=== PATIENT | female | born 1985 | race Caucasian/White ===

== ENCOUNTER → 2023-10-13 13:22 | Outpatient (CLI) | payer OTHER, SELFPAY | PROVIDERS: Referring Provider Internal Medicine; Visit Provider Internal Medicine | DX: J45.40 Moderate persistent asthma, uncomplicated (principal); R06.02 Shortness of breath | CPT/HCPCS: 94060; 94726; 94729 ==

== ENCOUNTER → 2023-10-28 15:21 | Outpatient (CLI) | payer OTHER, SELFPAY ==
--- NOTE | 2023-10-28 15:22 | DI.US.S_ITS ---
PROCEDURE: US ABDOMEN COMPLETE INDICATIONS: Hepatomegaly, not elsewhere classified TECHNIQUE: Real-time scanning was performed of the abdominal and retroperitoneal organs, with image documentation. COMPARISON: None. FINDINGS: Liver: Liver is normal in size and homogeneous in echotexture. Gallbladder: Gallbladder is normal in sonographic appearance without gallstones, gallbladder wall thickening, pericholecystic fluid, or abnormal sonographic Vroa's. Biliary ducts: Intrahepatic bile ducts are non-dilated. Extrahepatic bile duct caliber measures 3 mm. Normal is 6-7 mm or less in diameter, or 10 mm or less post-cholecystectomy. Pancreas: Visualized portions of the pancreas are sonographically normal. Miscellaneous: No free abdominal fluid. IMPRESSION: Unremarkable sonographic evaluation of the liver. Dictated by: Juan Foster M.D. on 10/28/2023 at 16:28 Approved by: Juan Foster M.D. on 10/28/2023 at 16:35
== END ==
PROVIDERS: Referring Provider Nurse Practitioner Family; Visit Provider Nurse Practitioner Family
DX: R16.0 Hepatomegaly, not elsewhere classified (principal)
CPT/HCPCS: 76700

== ENCOUNTER → 2024-11-14 15:35 | Outpatient (CLI) | payer OTHER, SELFPAY ==
--- NOTE | 2024-11-14 15:36 | DI.US.S_ITS ---
PROCEDURE: US PELVIC COMPLETE INDICATIONS: HEAVY PERIODS TECHNIQUE: Real-time scanning was performed of the pelvic organs, with image documentation. Additional endovaginal scanning was necessary due to incomplete visualization of the adnexal and endometrial structures by transabdominal scanning. COMPARISON: None. FINDINGS: Uterus: 10.4 x 5.5 x 3.5 cm. Endometrium was not well seen. Anteverted positioning. Ovaries: Right ovary measures 3.4 x 1.5 x 1.9 cm, overall nonenlarged. Left ovary was not well seen. Other: No pathologic free fluid. Very poor sonographic windows due to body habitus IMPRESSION: Very poor sonographic windows, limiting evaluation Prominent size of the uterus. The endometrium was not well seen. No gross abnormality identified. The left ovary was not well seen. Right ovary is unremarkable. If there is sufficient clinical concern, a pelvic MRI gynecologic protocol could be obtained. Dictated by: José Miguel Mcneill M.D. on 11/15/2024 at 0:34 Approved by: José Miguel Mcneill M.D. on 11/15/2024 at 0:36
== END ==
LOC: US 15:36
PROVIDERS: Referring Provider Nurse Practitioner Family; Visit Provider Nurse Practitioner Family
DX: N92.0 Excessive and frequent menstruation with regular cycle (principal)
CPT/HCPCS: 76830; 76856

== ENCOUNTER → 2025-04-15 09:12 | Outpatient (CLI) | payer OTHER, SELFPAY ==
--- NOTE | 2025-04-15 09:14 | DI.CT.S_ITS ---
PROCEDURE: CT SINUS SCREEN WO CON INDICATIONS: Sinusitis, chronic pansinusitis TECHNIQUE: Noncontrast 3.0 mm axial images acquired from the frontal sinuses to the mid- sella, with coronal and sagittal reformats. For radiation dose reduction, the following was used: automated exposure control, adjustment of mA and/or kV according to patient size. COMPARISON: None. FINDINGS: Image quality: Excellent. Sinuses: Minimal scattered pansinus mucosal thickening most prominent in the maxillary sinuses. No fluid levels. Postsurgical sinus changes are present. Ostiomeatal Complexes: Maxillary antrectomies are widely patent. Miscellaneous: Visualized intra-orbital contents are normal. No mercedes bullosa or paradoxical turbinate curvature. No nasal septal deviation. IMPRESSION: Minimal scattered pansinus mucosal thickening without fluid levels. Dictated by: Yadi Reddy M.D. on 04/15/2025 at 15:53 Approved by: Yadi Reddy M.D. on 04/15/2025 at 15:55
== END ==
LOC: CT 09:14
PROVIDERS: Referring Provider Otolaryngology; Visit Provider Otolaryngology
DX: J32.4 Chronic pansinusitis (principal); J01.41 Acute recurrent pansinusitis; Z98.890 Other specified postprocedural states
CPT/HCPCS: 70486